=== PATIENT | male | born 1990 | race Caucasian/White ===

== ENCOUNTER 2019-07-20 10:00 | Outpatient (RCR) | payer OTHER ==
[2019-04-18 23:25] VITALS: BP 110/72
[~2019-07-20 10:00] MED LIST: ZOFRAN ODT4 MG PO
== END 2019-07-20 10:30 ==
LOC: PT 10:00
DX: Z98.890 Other specified postprocedural states (principal)

== ENCOUNTER 2019-12-18 09:59 | Emergency (ER) | payer BC ==
[~2019-12-18] VITALS: Ht 177.8 cm; Wt 113.6 kg
[2019-12-18] MEDS ORDERED: PRILOSEC 20MG20 MG PO (10:15)
[2019-12-18 10:43] LABS: EOS # 0.2 (0.04-0.40); EOS % 3.8 % (0.0-4.0); HEMATOCRIT 46.6 % (42.0-52.0); HEMOGLOBIN 16.2 g/dL (13.5-18.0); LYMPH# 1.4 (1.50-4.00); MEAN CELL VOLUME 94 fl (78-100); MEAN CORPUSCULAR HEMOGLOBIN 33 pg (27-31); MEAN CORPUSCULAR HGB CONC 35 g/dL (33-37); MEAN PLATELET VOLUME 9.3 fl (7.4-10.4); MONO # 0.6 (0.20-0.80); NEU # 3.1 (1.40-6.50); PLATELET COUNT 206 K/mm3 (130-400); RED BLOOD COUNT 4.96 M/mm3 (4.20-5.60); RED CELL DISTRIBUTION WIDTH 12.7 % (11.5-14.5); WHITE BLOOD COUNT 5.2 K/mm3 (4.8-10.8)
[2019-12-18 11:01] LABS: ALBUMIN 4.6 g/dL (3.5-5.0); POTASSIUM 4.1 mmol/L (3.5-5.1)
[2019-12-18 11:05] LABS: TOTAL BILIRUBIN 0.5 mg/dL (0.2-1.2)
[2019-12-18 11:10] LABS: URINE WBC 0 /hpf (0-3)
[2019-12-18 11:25] LABS: URINE APPEARANCE CLEAR; URINE BILIRUBIN NEGATIVE (NEGATIVE); URINE BLOOD NEGATIVE (NEGATIVE); URINE COLOR YELLOW; URINE GLUCOSE NEGATIVE (NEGATIVE); URINE KETONE NEGATIVE (NEGATIVE); URINE LEUKOCYTE ESTERASE NEGATIVE (NEGATIVE); URINE NITRATE NEGATIVE (NEGATIVE); URINE PROTEIN(semi-quant) TRACE mg/dL (NEGATIVE); URINE UROBILINOGEN NORMAL (NORMAL)
[2019-12-18] MEDS ORDERED: ZOFRAN4 M2 PO (12:56)
[2019-12-18] MEDS ORDERED: PROTONIX TR40 M1 PO (12:56)
[2019-12-18 13:12] VITALS: BP 111/70
== END 2019-12-18 13:12 | disposition home or self-care (01) ==
LOC: ED 09:59
PROVIDERS: Nurse Practitioner Primary Care
DX: R10.11 Right upper quadrant pain (principal); R10.31 Right lower quadrant pain
CPT/HCPCS: J2270; J2405; Q9967

== ENCOUNTER → 2020-04-25 | Outpatient (CLI) | payer BC ==
[~2020-04-25] MED LIST changes: +PRILOSEC 20MG20 MG PO; +PROTONIX TR40 M1 PO; +ZOFRAN4 M2 PO
== END ==
LOC: LAB 10:35
DX: R50.9 Fever, unspecified (principal); R05 Cough; R53.83 Other fatigue; R11.2 Nausea with vomiting, unspecified; Z20.828 Contact with and (suspected) exposure to other viral communicable diseases

== ENCOUNTER → 2024-06-26 | Outpatient (CLI) | payer OTHER ==
[2024-06-26 15:45] LABS: BASO # 0.03 K/mm3 (0.02-0.10); EOS # 0.12 K/mm3 (0.04-0.40); EOS % 1.8 % (0.0-4.0); HEMATOCRIT 44.3 % (42.0-52.0); HEMOGLOBIN 15.4 g/dL (13.5-18.0); MEAN CELL VOLUME 97 fl (78-100); MEAN CORPUSCULAR HEMOGLOBIN 34 pg (27-31); MEAN CORPUSCULAR HGB CONC 35 g/dL (33-37); MEAN PLATELET VOLUME 9.3 fl (7.4-10.4); MONO # 0.53 K/mm3 (0.20-0.80); NEU # 4.64 K/mm3 (1.40-6.50); PLATELET COUNT 244 K/mm3 (130-400); RED BLOOD COUNT 4.58 M/mm3 (4.20-5.60); RED CELL DISTRIBUTION WIDTH 12.3 % (11.5-14.5); WHITE BLOOD COUNT 6.7 K/mm3 (4.8-10.8)
== END ==
LOC: LAB 15:28
PROVIDERS: Nurse Practitioner Family
DX: M79.672 Pain in left foot (principal)

== ENCOUNTER 2024-07-09 19:18 | Emergency (ER) | payer OTHER ==
[~2024-07-09] VITALS: Ht 177.8 cm; Wt 113.6 kg
[2024-07-09 20:00] LABS: BASO # 0.04 K/mm3 (0.02-0.10); EOS # 0.14 K/mm3 (0.04-0.40); EOS % 2.3 % (0.0-4.0); HEMATOCRIT 44.4 % (42.0-52.0); HEMOGLOBIN 15.2 g/dL (13.5-18.0); LYMPH# 1.61 K/mm3 (1.50-4.00); MEAN CELL VOLUME 98 fl (78-100); MEAN CORPUSCULAR HEMOGLOBIN 33 pg (27-31); MEAN CORPUSCULAR HGB CONC 34 g/dL (33-37); MEAN PLATELET VOLUME 9.1 fl (7.4-10.4); MONO # 0.48 K/mm3 (0.20-0.80); NEU # 3.88 K/mm3 (1.40-6.50); PLATELET COUNT 214 K/mm3 (130-400); RED BLOOD COUNT 4.55 M/mm3 (4.20-5.60); RED CELL DISTRIBUTION WIDTH 12.6 % (11.5-14.5); WHITE BLOOD COUNT 6.2 K/mm3 (4.8-10.8)
[2024-07-09] MEDS ORDERED: NS 1,000 ML IV SCH (20:00)
[2024-07-09] MEDS ORDERED: Ondansetron 4 MG/2 ML VIAL IV ONE (20:00)
[2024-07-09 20:05] LABS: ALBUMIN 4.2 g/dL (3.5-5.0)
[2024-07-09 20:06] LABS: CALCIUM 9.4 mg/dL (8.3-10.5)
[2024-07-09 20:08] LABS: TOTAL PROTEIN 7.1 g/dL (6.4-8.3)
[2024-07-09 20:09] LABS: TOTAL BILIRUBIN 0.3 mg/dL (0.2-1.2)
[2024-07-09] MEDS ORDERED: Iohexol 350 - 100 ML VIAL IV ONE (20:21)
[2024-07-09 21:37] VITALS: BP 115/68
== END 2024-07-09 21:39 | disposition home or self-care (01) ==
LOC: ED 19:18
PROVIDERS: Physician Assistant
DX: R42 Dizziness and giddiness (principal); M54.2 Cervicalgia; M54.6 Pain in thoracic spine
CPT/HCPCS: J2405; J7030; Q9967

== ENCOUNTER → 2024-12-07 | Outpatient (CLI) | payer OTHER ==
[2024-12-07 09:58] LABS: BASO # 0.02 K/mm3 (0.02-0.10); EOS # 0.22 K/mm3 (0.04-0.40); EOS % 4.2 % (0.0-4.0); LYMPH# 1.23 K/mm3 (1.50-4.00); MEAN CELL VOLUME 97 fl (78-100); MEAN CORPUSCULAR HEMOGLOBIN 33 pg (27-31); MEAN CORPUSCULAR HGB CONC 34 g/dL (33-37); MEAN PLATELET VOLUME 9.1 fl (7.4-10.4); MONO # 0.49 K/mm3 (0.20-0.80); NEU # 3.26 K/mm3 (1.40-6.50); PLATELET COUNT 223 K/mm3 (130-400); RED BLOOD COUNT 4.85 M/mm3 (4.20-5.60); RED CELL DISTRIBUTION WIDTH 12.2 % (11.5-14.5); WHITE BLOOD COUNT 5.2 K/mm3 (4.8-10.8)
[2024-12-07 10:03] LABS: ALBUMIN 4.1 g/dL (3.5-5.0)
[2024-12-07 10:04] LABS: CALCIUM 9.7 mg/dL (8.3-10.5)
[2024-12-07 10:05] LABS: TOTAL PROTEIN 7.5 g/dL (6.4-8.3)
[2024-12-07 10:07] LABS: TOTAL BILIRUBIN 0.6 mg/dL (0.2-1.2)
== END ==
LOC: LAB 09:43
PROVIDERS: Nurse Practitioner
DX: Z00.00 Encounter for general adult medical examination without abnormal findings (principal); Z13.220 Encounter for screening for lipoid disorders

== ENCOUNTER → 2025-01-02 | Outpatient (CLI) | payer OTHER | LOC: LAB 09:58 | DX: R63.4 Abnormal weight loss (principal); R06.2 Wheezing; R05.9 Cough, unspecified ==

== ENCOUNTER 2025-01-09 17:26 | Emergency (ER) | payer OTHER ==
[~2025-01-09] VITALS: Ht 177.8 cm; Wt 104.5 kg
[2025-01-09] MEDS ORDERED: NS 1,000 ML IV ONE (17:30)
[2025-01-09] MEDS ORDERED: Acetaminophen/Codeine 300-30 MG TAB PO ONE (17:45)
[2025-01-09] MEDS ORDERED: Ondansetron 4 MG/2 ML VIAL IV ONE (17:45)
[2025-01-09 17:52] LABS: BASO # 0.02 K/mm3 (0.02-0.10); EOS # 0.11 K/mm3 (0.04-0.40); HEMATOCRIT 47.5 % (42.0-52.0); HEMOGLOBIN 16.5 g/dL (13.5-18.0); LYMPH# 1.95 K/mm3 (1.50-4.00); MEAN CELL VOLUME 95 fl (78-100); MEAN CORPUSCULAR HEMOGLOBIN 33 pg (27-31); MEAN CORPUSCULAR HGB CONC 35 g/dL (33-37); MEAN PLATELET VOLUME 8.9 fl (7.4-10.4); MONO # 0.93 K/mm3 (0.20-0.80); NEU # 8.16 K/mm3 (1.40-6.50); PLATELET COUNT 221 K/mm3 (130-400); RED CELL DISTRIBUTION WIDTH 12.2 % (11.5-14.5); WHITE BLOOD COUNT 11.2 K/mm3 (4.8-10.8)
[2025-01-09 17:53] LABS: ALBUMIN 3.8 g/dL (3.5-5.0)
[2025-01-09 17:55] LABS: CALCIUM 9.3 mg/dL (8.3-10.5)
[2025-01-09 17:58] LABS: TOTAL BILIRUBIN 0.7 mg/dL (0.2-1.2)
[2025-01-09 18:27] LABS: PH-URINE 5.5 (5.0 - 8.0); URINE APPEARANCE SLIGHTLY CLOUDY (CLEAR); URINE BILIRUBIN 1+ (NEGATIVE); URINE BLOOD NEGATIVE (NEGATIVE); URINE COLOR YELLOW (YELLOW); URINE GLUCOSE NEGATIVE (NEGATIVE); URINE KETONE 1+ (NEGATIVE); URINE LEUKOCYTE ESTERASE NEGATIVE (NEGATIVE); URINE MUCUS PRESENT (NOT PRESENT); URINE NITRATE NEGATIVE (NEGATIVE); URINE PROTEIN(semi-quant) NEGATIVE (NEGATIVE); URINE WBC 0-1 /hpf (0-3)
[2025-01-09] MEDS ORDERED: NS 100 ML IV SCH (18:38)
[2025-01-09] MEDS ORDERED: Iohexol 300 - 100 ML VIAL IV ONE (18:38)
[2025-01-09] MEDS ORDERED: AMOXICILLIN AND1 TA2 PO (18:56)
[2025-01-09] MEDS ORDERED: Amoxicillin/Clavulanate K+ 875/125 MG TAB PO ONE (19:00)
[2025-01-09 19:07] VITALS: BP 122/74
== END 2025-01-09 19:08 | disposition home or self-care (01) ==
LOC: ED 17:26
PROVIDERS: Family Medicine
DX: N50.89 Other specified disorders of the male genital organs (principal); E66.9 Obesity, unspecified; D72.829 Elevated white blood cell count, unspecified; Z68.33 Body mass index [BMI] 33.0-33.9, adult
CPT/HCPCS: J2405; J7030; Q9967